=== PATIENT | male | born 1970 | race Caucasian/White ===

== ENCOUNTER 2020-07-23 | Emergency (ER) | payer OTHER | END 2020-07-23 22:45 | disposition home or self-care (01) | CPT/HCPCS: 96361; 96374; 99283 ==

== ENCOUNTER 2023-06-12 07:16 | Day surgery (SDC) | payer BC ==
[2023-06-12] MEDS: LACTATED RINGERS 1,000 ML IV SCH (07:28)
[2023-06-12] MEDS ORDERED: PROPOFOL 10 MG/ML 20 ML VIAL IV ONE (08:06)
--- NOTE | 2023-06-12 08:09 | P.GSHP ---
History of Present Illness H&P Date: 06/12/23 Chief Complaint: GERD, screening 52-year-old male here today for upper and lower endoscopy. Patient with history of chronic reflux. Was taking antiacids on a chronic basis but stopped about a year or so ago and has done fairly well without them. Patient has a history of hiatal hernia. Due for screening colonoscopy. No bowel complaints. No family history of colon cancer. Past Medical History Past Medical History: No Reported History Additional Past Medical History / Comment(s): seasonal allergies, History of Any Multi-Drug Resistant Organisms: None Reported Past Surgical History: Appendectomy, Tonsillectomy Additional Past Surgical History / Comment(s): lft chest gynomastia removed Past Anesthesia/Blood Transfusion Reactions: No Reported Reaction Smoking Status: Never smoker - Past Family History Mother Family Medical History: Cancer Additional Family Medical History / Comment(s): breast Father Family Medical History: Cancer Additional Family Medical History / Comment(s): prostate Medications and Allergies Home Medications Medication Instructions Recorded Confirmed Type Fexofenadine/Pseudoephedrine 1 tab PO DAILY 06/07/23 06/12/23 History [Tamy-D 24 Hour Tablet] Multivitamins, Thera [Multivitamin 1 tab PO DAILY 06/07/23 06/12/23 History (formulary)] Sertraline [Zoloft] 50 mg PO DAILY 06/07/23 06/12/23 History Allergies Allergy/AdvReac Type Severity Reaction Status Date / Time seasonal allergies AdvReac Unknown Uncoded 06/12/23 07:30 Surgical - Exam Vital Signs Temp Pulse Resp BP Pulse Ox 96.9 F L 87 18 124/58 96 06/12/23 07:31 06/12/23 07:31 06/12/23 07:31 06/12/23 07:31 06/12/23 07:31 Physical exam: General: Well-developed, well-nourished HEENT: Normocephalic, sclerae nonicteric Abdomen: Nontender, nondistended Extremities: No edema Neuro: Alert and oriented Assessment and Plan (1) GERD (gastroesophageal reflux disease) Narrative/Plan: Will proceed with upper and lower endoscopy at this time. Current Visit: Yes Status: Acute Code(s): K21.9 - GASTRO-ESOPHAGEAL REFLUX DISEASE WITHOUT ESOPHAGITIS SNOMED Code(s): 266492133
[2023-06-12 08:12] VITALS: RESP 18; TEMP 96.9
--- NOTE | 2023-06-12 08:28 | P.PCN ---
Date of Procedure: 06/12/23 Procedure(s) Performed: PREOPERATIVE DIAGNOSIS: GERD, screening POSTOPERATIVE DIAGNOSIS: Gastritis, hiatal hernia, mild distal esophagitis, diverticulosis, colon polyps PROCEDURE: 1. EGD with biopsy 2. Colonoscopy with snare polypectomy ANESTHESIA: MAC SURGEON: Tanner Mckee M.D. SPECIMENS: Antrum, GE junction, polyps ENDOSCOPIC PROCEDURE: The patient was on the endoscopy table in the left decubitus position. The Olympus gastroscope was inserted into the oropharynx and passed under direct visualization to the region of the third portion of the duodenum. From that point the scope was slowly withdrawn inspecting all surfaces carefully. There were no neoplastic inflammatory or polypoid lesions t hroughout the duodenum. The pylorus was widely patent. The stomach was carefully inspected. There was mild gastritis present. A biopsy of the antrum took place to rule out H. pylori. Retroflexion revealed a small sliding hiatal hernia. The GE junction was present 1.5 cm above the diaphragmatic hiatus. There was minimal inflammatory changes at the GE junction and a biopsy was taken. The esophagus was examined and appeared otherwise normal. The patient was kept on the endoscopy table in the left decubitus position. The Olympus colonoscope was inserted into the anus and passed under direct visualization to the base of the cecum. The appendiceal orifice was visualized. From that point the scope was slowly withdrawn inspecting all surfaces carefully. There were no neoplastic inflammatory or polypoid lesions throughout the cecum, ascending, and transverse colon. In the descending colon at 40 to 45 cm there was a small pedunculated polyp on a long stalk. This was removed using the snare with cautery technique. The remainder of the descending and sigmoid colon appeared normal. At the rectum at 7 cm was a 8 mm polyp that was removed using the snare with cautery technique as well. The remainder of the rectum was normal. The patient had mild scattered diverticulosis. Digital rectal examination was normal. The patient was taken to the recovery room in stable condition per anesthesia guidelines. RECOMMENDATIONS: Await biopsy results. Anticipate repeat colonoscopy 5 years. Continue as needed antiacid therapy.
[2023-06-12 09:49] VITALS: BP 138/83; PULSE 79
== END 2023-06-12 10:16 | disposition home or self-care (01) ==
LOC: ORWHC2ENDO 07:16
PROVIDERS: ATTEND Surgery
DX: Z12.11 Encounter for screening for malignant neoplasm of colon (principal); K29.50 Unspecified chronic gastritis without bleeding; K21.00 Gastro-esophageal reflux disease with esophagitis, without bleeding; D12.8 Benign neoplasm of rectum; K44.9 Diaphragmatic hernia without obstruction or gangrene; K57.30 Diverticulosis of large intestine without perforation or abscess without bleeding; F32.A Depression, unspecified; Z90.49 Acquired absence of other specified parts of digestive tract; Z79.899 Other long term (current) drug therapy
CPT/HCPCS: 88305; 45385; 43239; J2704